=== PATIENT | male | born 1940 | race Caucasian/White ===

== ENCOUNTER → 2024-05-11 08:48 | Outpatient (REF) | payer MEDICARE, OTHER, SELFPAY ==
[2024-05-11 10:34] LABS: Hematocrit 42.5 % (39.0-52.0); Hemoglobin 14.2 g/dL (13.0-18.0); Mean Corp Hgb Conc. 33.4 g/dL (33.0-37.0); Mean Corpuscular Hgb 30.9 pg (27.0-31.0); Mean Corpuscular Volume 92.4 fL (80.0-94.0); Mean Platelet Volume 10.9 fL (7.4-10.4); Platelet Count 165 10^3/uL (130-400); Red Cell Dist. Width 14.5 % (11.5-14.5); White Blood Cell Count 7.7 10^3/uL (4.8-10.8)
[2024-05-11 11:06] LABS: Blood Urea Nitrogen 19 mg/dl (9-20); Calcium 9.2 mg/dl (8.4-10.2); Carbon Dioxide 31 mmol/L (22-30); Chloride 99 mmol/L (98-107); Glucose 98 mg/dl (70-99); Potassium 4.1 mmol/L (3.5-5.1); Sodium 138 mmol/L (135-145); eGFR > 60.00
== END ==
LOC: SDSPAT 08:48
PROVIDERS: ATTENDING PHYSICIAN Specialist; FAMILY PHYSICIAN Family Medicine
DX: Z01.818 Encounter for other preprocedural examination (principal)
CPT/HCPCS: 36415; 80048; 85027

== ENCOUNTER 2024-05-19 06:10 | Day surgery (SDC) | payer MEDICARE, OTHER, SELFPAY ==
[2024-05-11 14:08] VITALS: BMI 26.0
[2024-05-19 06:24] VITALS: BP 170/92
[2024-05-19 06:31] VITALS: BMI 26.0
[2024-05-19] MEDS: NORMOSOL-R/PLASMALYTE-A 1000 IV (06:46)
[2024-05-19 08:48] VITALS: BP 127/80
[2024-05-19 08:50] VITALS: BP 127/80; BP 170/92
[2024-05-19 09:00] VITALS: BP 135/83
[2024-05-19 09:11] VITALS: BP 127/74
[2024-05-19 09:40] VITALS: BP 128/79
== END 2024-05-19 10:05 | disposition home or self-care (01) ==
LOC: SDS 06:10
PROVIDERS: ATTENDING PHYSICIAN Specialist; FAMILY PHYSICIAN Family Medicine
DX: N43.3 Hydrocele, unspecified (principal)
CPT/HCPCS: 55040; 88302

== ENCOUNTER → 2025-03-29 13:48 | Outpatient (REF) | payer MEDICARE, OTHER, SELFPAY | LOC: HWRCS 13:48 | PROVIDERS: ATTENDING PHYSICIAN Nuclear Medicine Nuclear Cardiology; FAMILY PHYSICIAN Family Medicine | DX: I25.10 Atherosclerotic heart disease of native coronary artery without angina pectoris (principal); Z95.1 Presence of aortocoronary bypass graft; I34.0 Nonrheumatic mitral (valve) insufficiency | CPT/HCPCS: 93306 ==